=== PATIENT | female | born 1950 | race Caucasian/White ===

== ENCOUNTER → 2017-06-05 | Outpatient (CLI) | payer MEDICARE ==
[~2017-06-05] MED LIST: ATOR10TA PO; CETI10CA PO; CHOL2000 PO; CITA10TA8 PO; NAPR220C2 PO; ONDA4TAB10 PO; OXYC-302 PO; POLY17PO5 PO; RAMI2.5C PO; RAMI5CAP PO; TAMS-11 PO
== END | disposition home or self-care (01) ==
LOC: CFH 11:31
PROVIDERS: ATTEND Internal Medicine
DX: Z12.31 Encounter for screening mammogram for malignant neoplasm of breast (principal)
CPT/HCPCS: 77067

== ENCOUNTER → 2018-06-30 | Outpatient (CLI) | payer MEDICARE ==
[~2018-06-30] MED LIST changes: +OMEP20TA62 PO; -RAMI2.5C PO; +RAMI2.5C2 PO; -RAMI5CAP PO; +RAMI5CAP57 PO
== END | disposition home or self-care (01) ==
LOC: CFH 10:14
PROVIDERS: ATTEND Nurse Practitioner Primary Care
DX: Z12.31 Encounter for screening mammogram for malignant neoplasm of breast (principal)
CPT/HCPCS: 77067

== ENCOUNTER → 2019-11-05 | Outpatient (CLI) | payer MEDICARE | END | disposition home or self-care (01) | LOC: CFH 09:50 | PROVIDERS: ATTEND Nurse Practitioner Primary Care | DX: Z12.31 Encounter for screening mammogram for malignant neoplasm of breast (principal) | CPT/HCPCS: 77067 ==

== ENCOUNTER → 2020-09-05 | Outpatient (CLI) | payer MEDICARE ==
[~2020-09-05] MED LIST changes: -OXYC-302 PO; +OXYC1TAB14 PO; -RAMI2.5C2 PO; +RAMI2.5C49 PO
== END | disposition home or self-care (01) ==
LOC: RAD 13:30
PROVIDERS: ATTEND Physician Assistant
DX: S92.342A Displaced fracture of fourth metatarsal bone, left foot, initial encounter for closed fracture (principal); S92.812A Other fracture of left foot, initial encounter for closed fracture; M19.072 Primary osteoarthritis, left ankle and foot; X58.XXXA Exposure to other specified factors, initial encounter; Y93.89 Activity, other specified; Y92.89 Other specified places as the place of occurrence of the external cause; Y99.8 Other external cause status

== ENCOUNTER 2020-09-23 09:04 | Day surgery (SDC) | payer MEDICARE ==
[2020-09-21 14:56] LABS: ALBUMIN 3.9 g/dL (3.4-5.0); ANION GAP 5 mmol/L (5-15); CALCIUM 9.5 mg/dL (8.5-10.1); CHLORIDE 109 mmol/L (98-107)
[2020-09-21 14:59] LABS: ALANINE AMINOTRANSFERASE 14 U/L (12-78); ALKALINE PHOSPHATASE 91 U/L (45-117); BILIRUBIN,TOTAL 0.3 mg/dL (0.2-1.0); CREATININE 0.75 mg/dL (0.55-1.02); TOTAL PROTEIN 6.8 g/dL (6.4-8.2)
[~2020-09-23] VITALS: Ht 154.9 cm; Wt 59.5 kg
[~2020-09-23 09:04] MED LIST changes: +AMLO-150 PO; +CITA20TA6 PO; +CYAN50003 PO; +Cranberry PO; +LOSA50TA14 PO; +ROSU5TAB PO; +TURM538C PO; +UBID100C24 PO
[2020-09-23] MEDS ORDERED: MIDAZOLAM 1 MG/ML, 2ML ONE (09:38)
[2020-09-23] MEDS ORDERED: FENTANYL PF 100 MCG/2ML ONE ×2 (09:38→11:49)
[2020-09-23 09:55] VITALS: BP 125/82
[2020-09-23] MEDS ORDERED: LACTATED RINGERS 1,000 ML IV SCH (10:00)
[2020-09-23] MEDS ORDERED: CHLORHEXIDINE 15 ML UDC PO ONE (10:00)
[2020-09-23] MEDS ORDERED: CHLORHEXIDINE 15 ML UDC ONE (10:11)
[2020-09-23] MEDS ORDERED: DEXAMETHASONE 4 MG/ML, 1ML ONE (10:31)
[2020-09-23] MEDS ORDERED: KETOROLAC 30 MG/1 ML ONE (10:31)
[2020-09-23] MEDS ORDERED: LIDOCAINE-MPF 2% ,5ML ONE (11:18)
[2020-09-23] MEDS ORDERED: ONDANSETRON 2MG/ML, 2ML ONE (11:18)
[2020-09-23] MEDS ORDERED: PROPOFOL 10 MG/ML, 20ML ONE (11:18)
[2020-09-23] MEDS ORDERED: CEFAZOLIN 1,000 MG ONE (11:18)
[2020-09-23] MEDS ORDERED: OXYcodone 5 MG/5 ML ORAL.SOL UDC PO PRN (11:30)
[2020-09-23] MEDS ORDERED: ACETAMINOPHEN 325 MG TABLET PO PRN (11:30)
[2020-09-23] MEDS ORDERED: FENTANYL PF 100 MCG/2ML IV PRN (11:30)
[2020-09-23] MEDS ORDERED: ALBUTEROL SULFATE 2.5 MG/3 ML NPPB PRN (11:30)
[2020-09-23] MEDS ORDERED: HYDROmorphone 1 MG/ML, 1ML INJ IVPush PRN (11:30)
[2020-09-23] MEDS ORDERED: LABETALOL 5MG/ML, 20ML IV PRN (11:30)
[2020-09-23] MEDS ORDERED: MIDAZOLAM 1 MG/ML, 2ML IV PRN (11:30)
[2020-09-23] MEDS ORDERED: MEPERIDINE/PF 25MG/0.5ML IVPush PRN (11:30)
[2020-09-23] MEDS ORDERED: PROMETHAZINE 25 MG/ML, 1ML IVPush PRN (11:30)
== END 2020-09-23 15:20 | disposition home or self-care (01) ==
LOC: OUT 09:04 → EDSTATUS 11:00 → OUT 15:20
PROVIDERS: ATTEND Orthopaedic Surgery
DX: S93.325A Dislocation of tarsometatarsal joint of left foot, initial encounter (principal); S92.322A Displaced fracture of second metatarsal bone, left foot, initial encounter for closed fracture; S92.332A Displaced fracture of third metatarsal bone, left foot, initial encounter for closed fracture; S92.342A Displaced fracture of fourth metatarsal bone, left foot, initial encounter for closed fracture; M19.90 Unspecified osteoarthritis, unspecified site; I10 Essential (primary) hypertension; E78.5 Hyperlipidemia, unspecified; K21.9 Gastro-esophageal reflux disease without esophagitis; G89.18 Other acute postprocedural pain; Z20.822 Contact with and (suspected) exposure to COVID-19; Z79.891 Long term (current) use of opiate analgesic; Z79.899 Other long term (current) drug therapy; Z98.890 Other specified postprocedural states; Z82.49 Family history of ischemic heart disease and other diseases of the circulatory system; W01.0XXA Fall on same level from slipping, tripping and stumbling without subsequent striking against object, initial encounter; Y93.89 Activity, other specified; Y92.096 Garden or yard of other non-institutional residence as the place of occurrence of the external cause; Y99.8 Other external cause status
CPT/HCPCS: 28485; 28615; 28730; 36415; 64445; 64447; 73620; 80053; 93005; C1713; J0690; J1100; J1885; J2250; J2405; J2704; J3010; U0003; 76000